=== PATIENT | male | born 1975 | race Caucasian/White ===

== ENCOUNTER 2021-06-25 08:30 | Observation (INO) | payer OTHER ==
[~2021-06-25] VITALS: Ht 152.4 cm; Wt 101.8 kg
--- NOTE | ~2021-06-25 | OP ---
[address] [address] OPERATIVE REPORT Name: HECTOR LEONE Room: [address] Nisha Mariee#: [id number] Admission: 06/25/21 Attend Phys: Desiree Garrett MD Discharge: 06/26/21 Date of : 79 Report #: [id number] THIS REPORT FOR: cc: Isha Blackwell NP, Elizabeth NP Haggard, Kent L MD ~ DATE OF SURGERY: 06/25/2021 PREOPERATIVE DIAGNOSIS: A 9 x 7 x 5 mm right ureteral stone with hydronephrosis. POSTOPERATIVE DIAGNOSIS: A 9 x 7 x 5 mm right ureteral stone with hydronephrosis. PROCEDURE: Cystoscopy, right retrograde pyelogram, right ureteroscopy with holmium laser lithotripsy, ureteroscopic stone extraction, placement of right ureteral stent with attached string. STAFF SURGEON: Kyree Salgado MD. ANESTHESIA: General. ESTIMATED BLOOD LOSS: None. COMPLICATIONS: None. SPECIMENS: Right ureteral stone fragments. DRAIN: A 28 cm x 4.8 Uzbek right ureteral stent. INDICATIONS: The patient is a pleasant 46-year-old white male, who was told back in 01/2021 that he did have a kidney stone. He began having some right-sided flank pain last night about 10:00 p.m. He came to [facility], where CT scan confirmed a 9 mm x 7 mm x 5 mm right ureteral stone with some proximal hydronephrosis. We were consulted to assist and manage evaluation. He was counseled regarding treatment options, elected for more definitive treatment and elected for definitive cystoscopy, right retrograde pyelogram, right ureteroscopy, possible holmium laser lithotripsy, possible placement of right ureteral stent. After risks and benefits of the procedure were explained, an informed consent was obtained. OPERATIVE PROCEDURE: The patient was taken to the operating room, comfortably placed in the dorsal lithotomy position under adequate general anesthesia. He was sterilely prepped and draped in standard fashion, exposing only the genitalia. He received his antibiotic therapy as prescribed. Appropriate timeout was carried out and all were in agreement. A 22-U[place] [address] OPERATIVE REPORT Name: LEONEHECTOR Room: [address]#: [id number] Admission: 06/25/21 Attend Phys: Desiree Garrett MD Discharge: 06/26/21 Date of : 79 Report #: [id number] placed in the urethra. Anterior urethra was normal, sphincter intact. Prostate showed intact bladder neck. Bladder was systematically viewed. Both ureteral orifices identified normal. No bladder calculi seen or foreign body observed. Mucosa was smooth. A 5-Uzbek open-ended ureteral catheter was placed in the right ureteral orifice and a retrograde pyelogram, went up about 5 cm and it just stopped over the filling defect corresponding to stone seen on CT scan, was able to manipulate a 0.035 Glidewire up the right ureter into the upper pole moiety. The cystoscope was removed and a 4.5-Uzbek tapered to a 6.5-Uzbek Amaro semi-rigid ureteroscope was advanced through the urethra up the right ureter, up to the level of the stone. A 200 micron holmium laser fiber set at 6.4 man was placed on the stone to break up the stone into multiple fragments. A 1.9-Uzbek nitinol basket was used to sequentially remove the fragments gently from the ureter. There were about 6 passes to remove all the fragments out. No significant stone debris remained. I did put the ureteroscope up to the bifurcation and saw no other residual fragments. No evidence of injury to the ureter. Ureteroscope was gently removed. Cystoscope backloaded over the guidewire and a 28 cm x 4.8 Uzbek ureteral stent was put in place and positioned with the coil in the upper pole moiety of the kidney and a good coil in the bladder. Bladder was drained, cystoscope was removed. String was left attached and secured to the outside of the phallus with Tegaderm. A 20 mL of lidocaine jelly was placed into his urethra. He may remove the stent on Wednesday and may follow up in our office in 6 weeks with renal ultrasound. By: [id number] Salgado MD /cesilia
[2021-06-25 08:41] VITALS: BP 153/107
[2021-06-25] MEDS ORDERED: BYSTOLIC10 MG PO (08:46)
[2021-06-25] MEDS ORDERED: HYDROCHLOROTHIA25 M1 PO (08:46)
[2021-06-25 09:16] LABS: URINE BILIRUBIN NEGATIVE (Negative); URINE BLOOD 3+ (Negative); URINE CLARITY CLEAR; URINE COLOR YELLOW; URINE GLUCOSE-RANDOM NEGATIVE (Negative); URINE KETONES TRACE (Negative); URINE LEUKOCYTES-REFLEX NEGATIVE (Negative); URINE NITRITE-REFLEX NEGATIVE (Negative); URINE PROTEIN 1+ (Negative); URINE SPECIFIC GRAVITY >= 1.030 (1.005-1.030); URINE UROBILINOGEN 0.2 E.U./dl (0.2-1.0)
[2021-06-25 09:20] LABS: ABSOLUTE MONOCYTES 0.5 thou/uL (0.0-1.2); ABSOLUTE NEUTROPHILS 13.7 thou/uL (1.6-8.1); BASOPHILS 0.1 %; EOSINOPHILS 0.1 %; HEMATOCRIT 46.9 % (42.0-52.0); HEMOGLOBIN 15.6 gm/dL (14.0-18.0); LYMPHOCYTES 6.3 %; MCH 29.5 pg (26.0-34.0); MCHC 33.2 g/dL (28.0-37.0); MCV 88.7 fL (80.0-100.0); MONOCYTES 3.3 %; NUCLEATED RBCS 0 /100WBC; PLATELET COUNT* 256 thou/uL (150-400); POLYS 90.2 %; RBC 5.29 mil/uL (4.50-6.00); RDW-CV 13.1 % (10.5-14.5); WBC 15.2 thou/uL (4.0-11.0)
[2021-06-25 09:31] LABS: CALCIUM 8.9 mg/dL (8.5-10.1); CREATININE 1.4 mg/dL (0.6-1.3)
[2021-06-25 09:35] LABS: ALBUMIN 4.3 g/dL (3.4-5.0); TOTAL BILIRUBIN 0.5 mg/dL (<0.1-1.0)
[2021-06-25 09:42] LABS: AMORPHOUS URATES Many /LPF (None Seen); BACTERIA-REFLEX 1-9 Few /HPF (None Seen); CASTS None Seen /LPF (None Seen); FINE GRANULAR CASTS 4-10 Moderate /LPF (None Seen); MUCUS >6 Heavy strn/LPF (None Seen); SQUAMOUS 0-3 Few /LPF (0-3); URINE WBC-REFLEX 0-5 Rare /HPF (0-5)
[2021-06-25 10:37] VITALS: BP 133/88
--- NOTE | 2021-06-25 17:34 | EKG ---
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: CLAYTON : 1975 Requested By: Desiree Garrett Order Number: [id number] Kory MD: Ralph Hood Measurements Intervals Imogene Rate: 68 P: 20 SD: 141 QRS: -8 QRSD: 99 T: 1 QT: 382 QTc: 407 Interpretive Statements Sinus rhythm Left ventricular hypertrophy, by voltage No previous ECG available for comparison Electronically Signed On 06-25-2021 17:34:16 CDT by Ralph Hood [email or web address] <ELECTRONICALLY SIGNED> By: Ralph Hood MD, [facility] 06/25/21 1734 1057 1057 Ralph Hood MD, [facility] /EPI
--- NOTE | 2021-06-25 18:33 | NUR ---
PATIENT TRANSFERED TO FLOOR FROM PACU ACCOMPANIED BY PACU NURSE AND FRIEND VIA BED. ADMITTED DUE TO POST SURGERY FOR REMOVAL OF KIDNEY STONE. PATIENT WITH STRING TO PENIS, ATTACHED TO STENT, INTACT. IV TO LEFT AC INFUSING NORMAL SALINE AT 150ML/HR. A & O X4. ROOM AIR. ORIENTED TO ROOM AND FLOOR. ALL QUESTIONS AND CONCERNS ADDRESSED.
[2021-06-25 20:00] VITALS: BP 145/91
[2021-06-25 23:39] VITALS: BP 128/79
[2021-06-26 04:00] VITALS: BP 123/73
[2021-06-26 04:10] LABS: HEMATOCRIT 40.6 % (42.0-52.0); MCH 29.4 pg (26.0-34.0); MCHC 33.1 g/dL (28.0-37.0); MCV 88.8 fL (80.0-100.0); MPV 8.8 fl. (7.2-11.1); RBC 4.57 mil/uL (4.50-6.00); RDW-CV 13.7 % (10.5-14.5); WBC 14.5 thou/uL (4.0-11.0)
[2021-06-26 04:22] LABS: HEMOGLOBIN 13.5 gm/dL (14.0-18.0)
[2021-06-26 04:34] LABS: ALBUMIN 3.3 g/dL (3.4-5.0); CALCIUM 8.1 mg/dL (8.5-10.1); CREATININE 1.2 mg/dL (0.6-1.3); MAGNESIUM 1.9 mg/dL (1.8-2.4); POTASSIUM 3.5 mmol/L (3.5-5.1); TOTAL BILIRUBIN 0.6 mg/dL (<0.1-1.0); TOTAL PROTEIN 6.4 g/dL (6.4-8.2)
--- NOTE | 2021-06-26 05:02 | NUR ---
Alert and oriented x 4. He has voided well, it is tea colored. He hasn't c/o any pain. Vitals and O2 sat are within normal limits. He has slept well this shift.
[2021-06-26 08:00] VITALS: BP 133/80
[2021-06-26] MEDS ORDERED: TRAMADOL 50 MG50 MG PO (08:40)
[2021-06-26 12:00] VITALS: BP 141/87
[2021-06-26 14:41] VITALS: BP 141/87
[2021-06-26 15:04] VITALS: BP 141/87
--- NOTE | 2021-06-26 15:04 | NUR ---
Received discharge orders on pt, Pt tolerating Regulalr diet, no complaints of N/V. Pt still having hematuria and dark colored urine following surgery. Pt ambulatory with no devices. Labs and VS stable. IV d/c'd. Pt belongings returned and pt dressed in civilian clothes. Pt left in the presence of nursing staff and .
[2021-06-26 15:24] VITALS: BP 141/87
[2021-07-01 14:07] LABS: STONE CA OXALATE DIHYDRATE 20 % (()); STONE CA OXALATE MONOHYDRATE 80 % (()); STONE COLOR Brown (()); STONE SIZE 5x4 mm (())
== END 2021-06-26 15:25 | disposition home or self-care (01) ==
LOC: M.ERS 08:30 → M.CL 10:37 → M.TBA-CV 10:37 → M.ERS 10:39 → M.TBA-ER 10:45 → M.2W 10:45
PROVIDERS: Emergency Medicine; ADMIT Internal Medicine; ATTEND Internal Medicine
DX: N13.2 Hydronephrosis with renal and ureteral calculous obstruction (principal); K85.90 Acute pancreatitis without necrosis or infection, unspecified; N17.0 Acute kidney failure with tubular necrosis; I10 Essential (primary) hypertension; Z79.899 Other long term (current) drug therapy